=== PATIENT | female | born 1970 | race Caucasian/White ===

== ENCOUNTER 2018-11-28 15:29 | Emergency (ER) | payer SELFPAY ==
--- NOTE | 2018-11-28 16:10 | RAD ---
EXAM: XR Knee Rt 4 View STANDARD PROVIDED CLINICAL HISTORY: Knee pain COMPARISON: None FINDINGS: No evidence for fracture or other acute osseous abnormality. Tricompartmental osteophyte formation wi th medial femorotibial joint space narrowing. Alignment appears anatomic. Joint spaces appear otherwise preserved. No significant knee joint capsular distention apparent. IMPRESSION: Degenerative arthrosis without evidence for an acute osseous abnormality.
[2018-11-28 16:30] LABS: Bilirubin Negative (Negative); Blood, Urine Large (Negative); Glucose, Urine (Dipstick) Negative (Negative); Leukocyte Moderate (Negative); Nitrite Positive (Negative); Protein, Urine (Dipstick) > or equal to 300 mg/dL (Neg-Trace); Urobilinogen 0.2 mg/dL (Less than 2)
[2018-11-28 16:32] LABS: Clarity Turbid (Clear)
[2018-11-28 16:44] LABS: Bacteria/HPF 3+ HPF (None Seen); RBC/HPF 21-50 HPF (0-3); WBC/HPF Greater Than 50 HPF (0-3)
== END 2018-11-28 17:22 | disposition home or self-care (01) ==
LOC: ERS 15:29
DX: N39.0 Urinary tract infection, site not specified (principal); M25.561 Pain in right knee; Z86.718 Personal history of other venous thrombosis and embolism; F41.9 Anxiety disorder, unspecified; F31.9 Bipolar disorder, unspecified; Z79.01 Long term (current) use of anticoagulants; Z79.899 Other long term (current) drug therapy
CPT/HCPCS: 81003; 81015; 87077; 87086; 87186

== ENCOUNTER 2019-02-27 13:54 | Emergency (ER) | payer SELFPAY ==
[2019-02-27] MEDS ORDERED: Bupivacaine 0.5% 10 ML VIAL ONE (14:08)
== END 2019-02-27 15:05 | disposition home or self-care (01) ==
LOC: ERS 13:54
DX: K04.7 Periapical abscess without sinus (principal); F41.9 Anxiety disorder, unspecified; F31.9 Bipolar disorder, unspecified; Z86.718 Personal history of other venous thrombosis and embolism; Z79.01 Long term (current) use of anticoagulants; Z79.899 Other long term (current) drug therapy
CPT/HCPCS: J3490

== ENCOUNTER 2020-01-29 16:24 | Emergency (ER) | payer SELFPAY ==
[2020-01-29] MEDS ORDERED: Ondansetron ODT 4 MG TAB ONE (18:13)
[2020-01-29 18:35] LABS: #Basophils 0.1 thou/uL (0.0-0.2); #Eosinphils 0.5 thou/uL (0.0-0.7); #Lymphocytes 2.4 thou/uL (1.20-3.40); #Monocytes 0.6 thou/uL (0.11-0.59); #Neutrophils 4.6 thou/uL (1.40-6.50); %Basophils 0.8 % (0.0-1.0); %Eosinophils 5.8 % (0.0-10.0); %Lymphocytes 29.2 % (21.0-51.0); %Monocytes 6.9 % (0.0-10.0); %Neutrophils 57.4 % (42.0-75.0); Hemoglobin 14.2 g/dL (12.0-16.0); Mean Corpuscular HGB CONC 34.9 g/dL (32.0-36.0); Mean Corpuscular Hemoglobin 28.2 pg (27.0-31.0); Mean Platelet Volume 7.2 fL (7.4-10.4); Platelet Count 231 thou/uL (130-400); RBC Distribution Width 13.3 % (11.5-14.5); Red Blood Cell (RBC) Count 5.01 mill/uL (4.20-5.40); White Blood Cell (WBC) Count 8.1 thou/uL (4.8-10.8)
[2020-01-29] MEDS ORDERED: Milk Of Magnesia 30 ML UDCUP ONE (18:43)
[2020-01-29] MEDS ORDERED: Lidocaine Viscous Sol 2% 15 ml UD Cup ONE (18:44)
[2020-01-29] MEDS ORDERED: Pantoprazole 40 MG VIAL ONE (18:44)
[2020-01-29 19:03] LABS: ALT (SGPT) 15 U/L (8-55); AST (SGOT) 21 U/L (5-34); Albumin 4.1 g/dL (3.5-5.0); Alkaline Phosphatase 70 U/L (40-110); Anion Gap 13 mmol/L (10-20); BUN (Urea Nitrogen) 10 mg/dL (7.0-18.7); Bilirubin, Total 0.7 mg/dL (0.2-1.2); Calc. Creatinine Clearance 0 mL/min (70-130); Calcium 9.2 mg/dL (7.8-10.44); Carbon Dioxide 23 mmol/L (22-29); Chloride 105 mmol/L (98-107); Estimated GFR-MDRD 75; Globulin 3.1 g/dL (2.4-3.5); Glucose 108 mg/dL (70-105); Lipase 13 U/L (8-78); Potassium 3.7 mmol/L (3.5-5.1); Protein, Total 7.2 g/dL (6.0-8.3); Sodium 137 mmol/L (136-145)
--- NOTE | 2020-02-02 13:27 | EKG ---
Test Reason : Blood Pressure : / mmHG Vent. Rate : 074 BPM Atrial Rate : 074 BPM P-R Int : 140 ms QRS Dur : 092 ms QT Int : 400 ms P-R-T Axes : 055 064 -17 degrees QTc Int : 444 ms Normal sinus rhythm Abnormal ECG Confirmed by CAPRICE SHEIKH DO ([id number]), associate entertainment editor DEMARCUS SAMUEL ([id number] on 02/02/2020 1:27:26 PM Referred By: Confirmed By:CAPRICE SHEIKH DO
== END 2020-01-29 21:00 | disposition home or self-care (01) ==
LOC: ERS 16:24
DX: K29.70 Gastritis, unspecified, without bleeding (principal); Z86.718 Personal history of other venous thrombosis and embolism; F41.9 Anxiety disorder, unspecified; F31.9 Bipolar disorder, unspecified; Z79.01 Long term (current) use of anticoagulants; Z79.899 Other long term (current) drug therapy
CPT/HCPCS: 36415; 80053; 83690; 85025; 93005; 96374; C9113; Q0162

== ENCOUNTER 2021-07-31 13:36 | Inpatient (IN) | payer OTHER, MEDICAID ==
[2021-07-31] MEDS ORDERED: Morphine 4 MG/ML VIAL ONE (14:46)
[2021-07-31 15:30] LABS: ALT (SGPT) 12 U/L (8-55); AST (SGOT) 33 U/L (5-34); Albumin 3.8 g/dL (3.5-5.0); Alkaline Phosphatase 72 U/L (40-110); Anion Gap 14 mmol/L (10-20); BUN (Urea Nitrogen) 6 mg/dL (9.8-20.1); Bilirubin, Total 0.6 mg/dL (0.2-1.2); Calc. Creatinine Clearance 0 mL/min (70-130); Calcium 8.9 mg/dL (7.8-10.44); Carbon Dioxide 22 mmol/L (22-29); Chloride 108 mmol/L (98-107); Globulin 3.1 g/dL (2.4-3.5); Glucose 136 mg/dL (70-105); Potassium 3.8 mmol/L (3.5-5.1); Protein, Total 6.9 g/dL (6.0-8.3); Sodium 140 mmol/L (136-145)
[2021-07-31 15:50] LABS: #Eosinphils 0.3 thou/uL (0.0-0.7); #Lymphocytes 0.9 thou/uL (1.20-3.40); #Monocytes 0.5 thou/uL (0.11-0.59); #Neutrophils 8.1 thou/uL (1.40-6.50); %Basophils 0.1 % (0.0-1.0); %Lymphocytes 8.7 % (21.0-51.0); %Monocytes 5.2 % (0.0-10.0); Hemoglobin 13.5 g/dL (12.0-16.0); Mean Corpuscular HGB CONC 33.2 g/dL (32.0-36.0); Mean Corpuscular Hemoglobin 26.8 pg (27.0-31.0); Mean Corpuscular Volume 80.8 fL (78.0-98.0); Mean Platelet Volume 7.3 fL (7.4-10.4); Platelet Count 285 thou/uL (130-400); RBC Distribution Width 15.5 % (11.5-14.5); Red Blood Cell (RBC) Count 5.03 mill/uL (4.20-5.40); White Blood Cell (WBC) Count 9.8 thou/uL (4.8-10.8)
[2021-07-31 16:02] LABS: INR-International Normal Ratio 1.7; Prothrombin Time 20.4 sec (12.0-14.7)
[2021-07-31 16:03] LABS: PTT 35.3 sec (22.9-36.1)
[2021-07-31] MEDS ORDERED: Ondansetron ODT 4 MG TAB SL PRN (17:30)
[2021-07-31] MEDS ORDERED: Morphine 4 MG/ML VIAL SLOW IVP PRN (17:30)
[2021-07-31] MEDS ORDERED: Acetaminophen 325 MG TAB PO PRN (17:30)
[2021-07-31] MEDS ORDERED: Ondansetron PF 4 MG/2 ML Vial IVP PRN (17:30)
[2021-07-31] MEDS ORDERED: Ondansetron ODT 4 MG TAB PO PRN (17:35)
[2021-07-31] MEDS ORDERED: Acetaminophen 500 MG TAB PO PRN (17:35)
[2021-07-31] MEDS ORDERED: Dextrose 5% in Water 1,000 ML IV PRN (17:35)
[2021-07-31] MEDS ORDERED: Dextrose 50% Abboject 50 ML SYRINGE SLOW IVP PRN (17:35)
[2021-07-31] MEDS ORDERED: HYDROcodone/Acetaminophen 5/325 mg Tablet PO PRN (17:35)
[2021-07-31] MEDS ORDERED: HumaLOG 300 UNITS/3 ML VIAL SC PRN (17:35)
[2021-07-31] MEDS ORDERED: hydrALAZINE 20 MG/ML VIAL SLOW IVP PRN (17:35)
[2021-07-31] MEDS: HYDROcodone/Acetaminophen 5/325 mg Tablet PO PRN (19:54)
[2021-07-31] MEDS: Famotidine 20 MG TAB PO SCH (19:55)
[2021-07-31 20:58] VITALS: BMI 42.4
[2021-07-31] MEDS: Nystatin Powder 15 GM BOT TOP PRN (21:38)
[2021-08-01 00:26] LABS: SARS-CoV-2 PCR by NAA Not Detected (NotDetected)
[2021-08-01] MEDS: HYDROcodone/Acetaminophen 5/325 mg Tablet PO PRN ×4 (00:39→20:21)
[2021-08-01] MEDS ORDERED: hydrOXYzine 25 MG TAB PO SCH (04:45)
[2021-08-01 06:02] LABS: #Eosinphils 0.5 thou/uL (0.0-0.7); #Monocytes 0.5 thou/uL (0.11-0.59); #Neutrophils 5.1 thou/uL (1.40-6.50); %Basophils 0.2 % (0.0-1.0); %Eosinophils 7.3 % (0.0-10.0); %Lymphocytes 14.5 % (21.0-51.0); %Neutrophils 71.1 % (42.0-75.0); Hemoglobin 13.5 g/dL (12.0-16.0); Mean Corpuscular HGB CONC 34.4 g/dL (32.0-36.0); Mean Corpuscular Hemoglobin 27.9 pg (27.0-31.0); Mean Corpuscular Volume 81.1 fL (78.0-98.0); Mean Platelet Volume 7.2 fL (7.4-10.4); Platelet Count 274 thou/uL (130-400); RBC Distribution Width 15.6 % (11.5-14.5); Red Blood Cell (RBC) Count 4.84 mill/uL (4.20-5.40); White Blood Cell (WBC) Count 7.2 thou/uL (4.8-10.8)
[2021-08-01 06:07] LABS: Prothrombin Time 23.3 sec (12.0-14.7)
[2021-08-01 06:19] LABS: Anion Gap 11 mmol/L (10-20); BUN (Urea Nitrogen) 6 mg/dL (9.8-20.1); Calc. Creatinine Clearance 168 mL/min (70-130); Calcium 8.8 mg/dL (7.8-10.44); Carbon Dioxide 24 mmol/L (22-29); Chloride 108 mmol/L (98-107); Glucose 93 mg/dL (70-105); Potassium 3.7 mmol/L (3.5-5.1); Sodium 139 mmol/L (136-145)
[2021-08-01] MEDS: Morphine 4 MG/ML VIAL SLOW IVP PRN ×2 (08:28→23:24)
[2021-08-01] MEDS: Ondansetron PF 4 MG/2 ML Vial IVP PRN (08:29)
[2021-08-01] MEDS: Famotidine 20 MG TAB PO SCH ×2 (08:29→20:21)
[2021-08-01] MEDS: Baclofen 10 MG TAB PO SCH (17:02)
[2021-08-01] MEDS ORDERED: Sodium Chloride 0.9% 500 ML IV SCH (19:00)
[2021-08-01 21:23] LABS: Bacteria/HPF None Seen HPF (None Seen); Bilirubin Negative (Negative); Blood, Urine Negative (Negative); Clarity Clear (Clear); Glucose, Urine (Dipstick) Normal (Negative); Ketone, Urine Negative (Negative); Leukocyte Negative Leu/uL (Negative); Nitrite Negative (Negative); Protein, Urine (Dipstick) Negative (Neg-Trace); RBC/HPF 0-3 HPF (0-3); Specific Gravity, Urine 1.016 (1.002-1.036); Squamous Epithelial None Seen HPF (0-3); Urobilinogen Normal mg/dL (Less than 2); WBC/HPF 0-3 HPF (0-3)
[2021-08-01 21:24] LABS: Urine Culture Reflex No No
[2021-08-02] MEDS ORDERED: hydrOXYzine 25 MG TAB PO SCH
[2021-08-02] MEDS: HYDROcodone/Acetaminophen 5/325 mg Tablet PO PRN ×4 (02:19→22:49)
[2021-08-02] MEDS: Ondansetron PF 4 MG/2 ML Vial IVP PRN (03:18)
[2021-08-02] MEDS: Baclofen 10 MG TAB PO SCH ×2 (03:36→22:02)
[2021-08-02] MEDS: Famotidine 20 MG TAB PO SCH ×2 (08:15→22:02)
[2021-08-02] MEDS: Furosemide 20 MG/2 ML VIAL SLOW IVP SCH ×2 (15:23→16:30)
[2021-08-02] MEDS ORDERED: Furosemide 40 MG TAB PO SCH (16:45)
[2021-08-03] MEDS: hydrOXYzine Pamoate 25 mg Capsule PO PRN (03:29)
[2021-08-03] MEDS: Nystatin Powder 15 GM BOT TOP PRN ×2 (03:31→21:16)
[2021-08-03] MEDS: HYDROcodone/Acetaminophen 5/325 mg Tablet PO PRN ×3 (06:21→21:02)
[2021-08-03] MEDS: Baclofen 10 MG TAB PO SCH ×2 (08:48→21:06)
[2021-08-03] MEDS: Famotidine 20 MG TAB PO SCH ×2 (08:48→21:10)
[2021-08-03] MEDS: Aripiprazole 10 MG TAB PO SCH (21:04)
[2021-08-03] MEDS: busPIRone HCl 10 MG TAB PO SCH (21:04)
[2021-08-03] MEDS: azaTHIOprine 50 MG TAB PO SCH (21:06)
[2021-08-03] MEDS: Trihexyphenidyl 2 MG TAB PO SCH (21:07)
[2021-08-04] MEDS: HYDROcodone/Acetaminophen 5/325 mg Tablet PO PRN ×5 (00:57→23:47)
[2021-08-04] MEDS: Baclofen 10 MG TAB PO SCH ×2 (08:34→20:16)
[2021-08-04] MEDS: busPIRone HCl 10 MG TAB PO SCH ×2 (08:34→20:28)
[2021-08-04] MEDS: lamoTRIgine 100 MG TAB PO SCH (08:34)
[2021-08-04] MEDS: azaTHIOprine 50 MG TAB PO SCH ×2 (08:34→20:16)
[2021-08-04] MEDS: Famotidine 20 MG TAB PO SCH ×2 (08:34→20:17)
[2021-08-04] MEDS: Glimepiride 4 MG TAB PO SCH (08:34)
[2021-08-04] MEDS: Trihexyphenidyl 2 MG TAB PO SCH ×2 (08:35→20:15)
[2021-08-04] MEDS: predniSONE 50 MG TAB PO SCH (09:00)
[2021-08-04] MEDS: Aripiprazole 10 MG TAB PO SCH (20:17)
[2021-08-05] MEDS: HYDROcodone/Acetaminophen 5/325 mg Tablet PO PRN ×2 (04:46→12:25)
[2021-08-05] MEDS: busPIRone HCl 10 MG TAB PO SCH ×2 (08:26→22:00)
[2021-08-05] MEDS: Trihexyphenidyl 2 MG TAB PO SCH ×2 (08:27→21:57)
[2021-08-05] MEDS: azaTHIOprine 50 MG TAB PO SCH ×2 (08:27→21:59)
[2021-08-05] MEDS: Baclofen 10 MG TAB PO SCH ×2 (08:27→22:00)
[2021-08-05] MEDS: Glimepiride 4 MG TAB PO SCH (08:27)
[2021-08-05] MEDS: Famotidine 20 MG TAB PO SCH ×2 (08:27→21:59)
[2021-08-05] MEDS: predniSONE 50 MG TAB PO SCH (08:28)
[2021-08-05] MEDS: lamoTRIgine 100 MG TAB PO SCH (08:28)
[2021-08-05] MEDS: HumaLOG 300 UNITS/3 ML VIAL SC PRN (12:26)
[2021-08-05] MEDS: Aripiprazole 10 MG TAB PO SCH (21:58)
[2021-08-06] MEDS: HYDROcodone/Acetaminophen 5/325 mg Tablet PO PRN ×5 (00:55→21:55)
[2021-08-06] MEDS: hydrOXYzine Pamoate 25 mg Capsule PO PRN ×2 (00:56→21:55)
[2021-08-06] MEDS: Glimepiride 4 MG TAB PO SCH (08:45)
[2021-08-06] MEDS: azaTHIOprine 50 MG TAB PO SCH ×2 (08:46→21:50)
[2021-08-06] MEDS: busPIRone HCl 10 MG TAB PO SCH ×2 (08:46→21:00)
[2021-08-06] MEDS: Famotidine 20 MG TAB PO SCH ×2 (08:46→21:50)
[2021-08-06] MEDS: predniSONE 50 MG TAB PO SCH (08:46)
[2021-08-06] MEDS: Trihexyphenidyl 2 MG TAB PO SCH ×2 (08:47→21:49)
[2021-08-06] MEDS: Baclofen 10 MG TAB PO SCH ×2 (08:47→21:50)
[2021-08-06] MEDS: lamoTRIgine 100 MG TAB PO SCH (08:47)
[2021-08-06] MEDS: HumaLOG 300 UNITS/3 ML VIAL SC PRN (16:10)
[2021-08-06] MEDS: Aripiprazole 10 MG TAB PO SCH (21:49)
[2021-08-07] MEDS: HYDROcodone/Acetaminophen 5/325 mg Tablet PO PRN ×4 (06:00→18:29)
[2021-08-07] MEDS: predniSONE 50 MG TAB PO SCH (08:34)
[2021-08-07] MEDS: Glimepiride 4 MG TAB PO SCH (08:35)
[2021-08-07] MEDS: lamoTRIgine 100 MG TAB PO SCH (08:35)
[2021-08-07] MEDS: Famotidine 20 MG TAB PO SCH ×2 (08:35→20:51)
[2021-08-07] MEDS: Baclofen 10 MG TAB PO SCH ×2 (08:35→20:50)
[2021-08-07] MEDS: azaTHIOprine 50 MG TAB PO SCH ×2 (08:35→20:49)
[2021-08-07] MEDS: busPIRone HCl 10 MG TAB PO SCH ×2 (08:35→20:50)
[2021-08-07] MEDS: Trihexyphenidyl 2 MG TAB PO SCH ×2 (08:43→20:52)
[2021-08-07] MEDS: HumaLOG 300 UNITS/3 ML VIAL SC PRN ×2 (12:00→17:43)
[2021-08-07] MEDS: Aripiprazole 10 MG TAB PO SCH (20:48)
[2021-08-07] MEDS: hydrOXYzine Pamoate 25 mg Capsule PO PRN (22:01)
[2021-08-08] MEDS: HYDROcodone/Acetaminophen 5/325 mg Tablet PO PRN ×5 (01:19→21:08)
[2021-08-08] MEDS: Glimepiride 4 MG TAB PO SCH (08:46)
[2021-08-08] MEDS: predniSONE 50 MG TAB PO SCH (08:47)
[2021-08-08] MEDS: lamoTRIgine 100 MG TAB PO SCH (08:47)
[2021-08-08] MEDS: busPIRone HCl 10 MG TAB PO SCH ×2 (08:47→21:07)
[2021-08-08] MEDS: Baclofen 10 MG TAB PO SCH ×2 (08:48→21:07)
[2021-08-08] MEDS: azaTHIOprine 50 MG TAB PO SCH ×2 (08:48→21:07)
[2021-08-08] MEDS: Trihexyphenidyl 2 MG TAB PO SCH ×2 (08:48→21:08)
[2021-08-08] MEDS: Famotidine 20 MG TAB PO SCH ×2 (08:48→21:08)
[2021-08-08] MEDS ORDERED: Nystatin Powder 15 GM BOT TOP PRN (12:28)
[2021-08-08 16:04] LABS: SARS-CoV-2 PCR by NAA Not Detected (NotDetected)
[2021-08-08] MEDS: HumaLOG 300 UNITS/3 ML VIAL SC PRN (16:53)
[2021-08-08] MEDS: Aripiprazole 10 MG TAB PO SCH (21:06)
[2021-08-09] MEDS: HYDROcodone/Acetaminophen 5/325 mg Tablet PO PRN ×5 (01:33→20:51)
[2021-08-09] MEDS: lamoTRIgine 100 MG TAB PO SCH (08:21)
[2021-08-09] MEDS: predniSONE 50 MG TAB PO SCH (08:21)
[2021-08-09] MEDS: Famotidine 20 MG TAB PO SCH ×2 (08:22→20:51)
[2021-08-09] MEDS: Glimepiride 4 MG TAB PO SCH (08:22)
[2021-08-09] MEDS: azaTHIOprine 50 MG TAB PO SCH ×2 (08:23→20:50)
[2021-08-09] MEDS: busPIRone HCl 10 MG TAB PO SCH ×2 (08:23→20:50)
[2021-08-09] MEDS: Baclofen 10 MG TAB PO SCH ×2 (08:24→20:51)
[2021-08-09] MEDS: Trihexyphenidyl 2 MG TAB PO SCH ×2 (08:24→20:50)
[2021-08-09] MEDS: HumaLOG 300 UNITS/3 ML VIAL SC PRN (15:57)
[2021-08-09] MEDS: Aripiprazole 10 MG TAB PO SCH (20:51)
[2021-08-09] MEDS ORDERED: traZODone HCl 50 MG TAB PO SCH (21:30)
[2021-08-10] MEDS: HYDROcodone/Acetaminophen 5/325 mg Tablet PO PRN ×4 (01:05→21:12)
[2021-08-10 06:35] LABS: #Basophils 0.1 thou/uL (0.0-0.2); #Eosinphils 0.3 thou/uL (0.0-0.7); #Lymphocytes 2.3 thou/uL (1.20-3.40); #Monocytes 0.6 thou/uL (0.11-0.59); #Neutrophils 5.3 thou/uL (1.40-6.50); %Basophils 0.7 % (0.0-1.0); %Eosinophils 3.6 % (0.0-10.0); %Lymphocytes 27.3 % (21.0-51.0); %Monocytes 6.5 % (0.0-10.0); Hemoglobin 13.9 g/dL (12.0-16.0); Mean Corpuscular HGB CONC 32.2 g/dL (32.0-36.0); Mean Corpuscular Hemoglobin 26.9 pg (27.0-31.0); Mean Corpuscular Volume 83.6 fL (78.0-98.0); Mean Platelet Volume 6.9 fL (7.4-10.4); Platelet Count 417 thou/uL (130-400); RBC Distribution Width 15.5 % (11.5-14.5); Red Blood Cell (RBC) Count 5.15 mill/uL (4.20-5.40); White Blood Cell (WBC) Count 8.5 thou/uL (4.8-10.8)
[2021-08-10 06:50] LABS: Anion Gap 13 mmol/L (10-20); BUN (Urea Nitrogen) 14 mg/dL (9.8-20.1); Calc. Creatinine Clearance 155 mL/min (70-130); Calcium 9.4 mg/dL (7.8-10.44); Carbon Dioxide 25 mmol/L (22-29); Chloride 104 mmol/L (98-107); Glucose 72 mg/dL (70-105); Potassium 3.3 mmol/L (3.5-5.1); Sodium 139 mmol/L (136-145)
[2021-08-10] MEDS: busPIRone HCl 10 MG TAB PO SCH ×2 (08:46→21:12)
[2021-08-10] MEDS: azaTHIOprine 50 MG TAB PO SCH ×2 (08:46→21:11)
[2021-08-10] MEDS: lamoTRIgine 100 MG TAB PO SCH (08:46)
[2021-08-10] MEDS: Glimepiride 4 MG TAB PO SCH (08:47)
[2021-08-10] MEDS: Trihexyphenidyl 2 MG TAB PO SCH ×2 (08:47→21:11)
[2021-08-10] MEDS: predniSONE 50 MG TAB PO SCH (08:47)
[2021-08-10] MEDS: Baclofen 10 MG TAB PO SCH ×2 (08:47→21:12)
[2021-08-10] MEDS: Famotidine 20 MG TAB PO SCH ×2 (08:47→21:12)
[2021-08-10] MEDS ORDERED: Potassium Chloride 20 MEQ TAB PO SCH (13:30)
[2021-08-10] MEDS: HumaLOG 300 UNITS/3 ML VIAL SC PRN (17:25)
[2021-08-10] MEDS ORDERED: HYDROcodone/Acetaminophen 5/325 mg Tablet PO PRN (17:39)
[2021-08-10] MEDS: Aripiprazole 10 MG TAB PO SCH (21:11)
[2021-08-11] MEDS: HYDROcodone/Acetaminophen 5/325 mg Tablet PO PRN ×4 (01:11→22:01)
[2021-08-11] MEDS: azaTHIOprine 50 MG TAB PO SCH ×2 (09:02→21:58)
[2021-08-11] MEDS: lamoTRIgine 100 MG TAB PO SCH (09:02)
[2021-08-11] MEDS: predniSONE 50 MG TAB PO SCH (09:02)
[2021-08-11] MEDS: Glimepiride 4 MG TAB PO SCH (09:03)
[2021-08-11] MEDS: busPIRone HCl 10 MG TAB PO SCH ×2 (09:03→22:02)
[2021-08-11] MEDS: Trihexyphenidyl 2 MG TAB PO SCH ×2 (09:04→22:05)
[2021-08-11] MEDS: Baclofen 10 MG TAB PO SCH ×2 (09:04→22:06)
[2021-08-11] MEDS: Famotidine 20 MG TAB PO SCH ×2 (09:04→21:59)
[2021-08-11] MEDS: HumaLOG 300 UNITS/3 ML VIAL SC PRN (17:03)
[2021-08-11] MEDS: Aripiprazole 10 MG TAB PO SCH (21:59)
[2021-08-12] MEDS: HYDROcodone/Acetaminophen 5/325 mg Tablet PO PRN ×2 (02:58→11:53)
[2021-08-12 07:32] VITALS: BP 115/56; TEMP 97.6
[2021-08-12] MEDS: Glimepiride 4 MG TAB PO SCH (07:57)
[2021-08-12] MEDS: busPIRone HCl 10 MG TAB PO SCH (07:57)
[2021-08-12] MEDS: azaTHIOprine 50 MG TAB PO SCH (07:57)
[2021-08-12] MEDS: Baclofen 10 MG TAB PO SCH (07:57)
[2021-08-12] MEDS: Famotidine 20 MG TAB PO SCH (07:57)
[2021-08-12] MEDS: predniSONE 50 MG TAB PO SCH (07:58)
[2021-08-12] MEDS: lamoTRIgine 100 MG TAB PO SCH (07:58)
[2021-08-12] MEDS: Trihexyphenidyl 2 MG TAB PO SCH (07:59)
[2021-08-12] MEDS: HumaLOG 300 UNITS/3 ML VIAL SC PRN (11:56)
== END 2021-08-12 14:18 | disposition home health service (06) | DRG 551 ==
LOC: ERS 13:36 → T4-A 17:17 → OBSVTOIN 08-01 15:27
PROVIDERS: ADMIT Hospitalist; ATTEND Hospitalist
DX: S32.022A Unstable burst fracture of second lumbar vertebra, initial encounter for closed fracture (principal); J81.0 Acute pulmonary edema; S22.030A Wedge compression fracture of third thoracic vertebra, initial encounter for closed fracture; S22.050A Wedge compression fracture of T5-T6 vertebra, initial encounter for closed fracture; L10.0 Pemphigus vulgaris; Z68.41 Body mass index [BMI] 40.0-44.9, adult; Z20.822 Contact with and (suspected) exposure to COVID-19; M81.0 Age-related osteoporosis without current pathological fracture; E87.6 Hypokalemia; M81.8 Other osteoporosis without current pathological fracture; F41.9 Anxiety disorder, unspecified; T38.0X5A Adverse effect of glucocorticoids and synthetic analogues, initial encounter; F31.9 Bipolar disorder, unspecified; W01.0XXA Fall on same level from slipping, tripping and stumbling without subsequent striking against object, initial encounter; E11.9 Type 2 diabetes mellitus without complications; E66.01 Morbid (severe) obesity due to excess calories; R09.02 Hypoxemia; Y92.003 Bedroom of unspecified non-institutional (private) residence as the place of occurrence of the external cause; Z28.21 Immunization not carried out because of patient refusal; Z87.442 Personal history of urinary calculi; Z90.89 Acquired absence of other organs; Z95.828 Presence of other vascular implants and grafts; Z90.710 Acquired absence of both cervix and uterus; Z88.8 Allergy status to other drugs, medicaments and biological substances; Z79.01 Long term (current) use of anticoagulants; Z86.718 Personal history of other venous thrombosis and embolism; Z85.828 Personal history of other malignant neoplasm of skin; Z90.49 Acquired absence of other specified parts of digestive tract
CPT/HCPCS: 36415; 36416; 51798; 71045; 72128; 72131; 72170; 80048; 80053; 81001; 85025; 85610; 85730; 93005; 96374; 96375; 96376; G0378; J1815; J1940; J2270; J2405; J7030; J7500; J7512; Q0177; U0003; U0005

== ENCOUNTER 2021-08-30 09:55 | Inpatient (IN) | payer MEDICAID ==
[2021-08-30] MEDS ORDERED: Morphine 4 MG/ML VIAL ONE (10:09)
[2021-08-30] MEDS ORDERED: Cyclobenzaprine 10 MG TAB ONE (11:47)
[2021-08-30] MEDS ORDERED: Ketorolac Tromethamine 30 MG/ML VIAL ONE (11:47)
[2021-08-30] MEDS ORDERED: Lorazepam 2 MG/ML VIAL ONE (12:58)
[2021-08-30 13:10] LABS: #Eosinphils 0.5 thou/uL (0.0-0.7); #Monocytes 0.4 thou/uL (0.11-0.59); #Neutrophils 4.4 thou/uL (1.40-6.50); %Basophils 0.1 % (0.0-1.0); %Eosinophils 7.3 % (0.0-10.0); %Lymphocytes 16.4 % (21.0-51.0); %Monocytes 6.9 % (0.0-10.0); %Neutrophils 69.3 % (42.0-75.0); Hemoglobin 15.1 g/dL (12.0-16.0); Mean Corpuscular HGB CONC 32.9 g/dL (32.0-36.0); Mean Corpuscular Hemoglobin 27.3 pg (27.0-31.0); Mean Corpuscular Volume 83.1 fL (78.0-98.0); Mean Platelet Volume 7.3 fL (7.4-10.4); Platelet Count 262 thou/uL (130-400); RBC Distribution Width 16.1 % (11.5-14.5); Red Blood Cell (RBC) Count 5.53 mill/uL (4.20-5.40); White Blood Cell (WBC) Count 6.3 thou/uL (4.8-10.8)
[2021-08-30 13:26] LABS: INR-International Normal Ratio 1.5; Prothrombin Time 18.5 sec (12.0-14.7)
[2021-08-30 13:27] LABS: PTT 37.2 sec (22.9-36.1)
[2021-08-30 13:37] LABS: ALT (SGPT) 9 U/L (8-55); AST (SGOT) 23 U/L (5-34); Albumin 3.6 g/dL (3.5-5.0); Alkaline Phosphatase 90 U/L (40-110); Anion Gap 14 mmol/L (10-20); BUN (Urea Nitrogen) 5 mg/dL (9.8-20.1); Bilirubin, Total 0.8 mg/dL (0.2-1.2); Calc. Creatinine Clearance 0 mL/min (70-130); Calcium 9.3 mg/dL (7.8-10.44); Carbon Dioxide 24 mmol/L (22-29); Chloride 105 mmol/L (98-107); Globulin 3.3 g/dL (2.4-3.5); Glucose 96 mg/dL (70-105); Potassium 3.6 mmol/L (3.5-5.1); Protein, Total 6.9 g/dL (6.0-8.3); Sodium 139 mmol/L (136-145)
[2021-08-30] MEDS ORDERED: traMADol HCl 50 MG TAB PO PRN ×2 (13:57)
[2021-08-30] MEDS ORDERED: hydrALAZINE 20 MG/ML VIAL SLOW IVP PRN (13:57)
[2021-08-30] MEDS ORDERED: Morphine 2 MG/ML VIAL SLOW IVP PRN (13:57)
[2021-08-30] MEDS ORDERED: Promethazine HCl 25 MG/ML VIAL IM PRN (13:57)
[2021-08-30] MEDS ORDERED: Ondansetron PF 4 MG/2 ML Vial IVP PRN (13:57)
[2021-08-30] MEDS ORDERED: Phytonadione 10 MG/ML AMP SLOW IVP SCH (14:00)
[2021-08-30] MEDS ORDERED: Phytonadione 10 MG in Sodium Chloride 0.9% 50 ML IVPB SCH (14:15)
[2021-08-30 14:25] LABS: SARS-CoV-2 NAA Rapid Test Not Detected (NotDetected)
[2021-08-30 15:58] VITALS: BMI 37.9
[2021-08-30] MEDS: Sodium Chloride 0.9% 1,000 ML IV SCH ×2 (16:33→23:57)
[2021-08-30] MEDS ORDERED: Acetaminophen 500 MG TAB PO SCH (18:00)
[2021-08-30] MEDS: HYDROcodone/Acetaminophen 5/325 mg Tablet PO PRN (21:20)
[2021-08-30] MEDS: Famotidine/PF 20 mg/2ml Vial SLOW IVP SCH (21:21)
[2021-08-31] MEDS: traZODone HCl 50 MG TAB PO PRN ×2 (01:51→21:49)
[2021-08-31] MEDS: HYDROcodone/Acetaminophen 5/325 mg Tablet PO PRN ×3 (04:34→21:47)
[2021-08-31] MEDS: Sodium Chloride 0.9% 1,000 ML IV SCH ×2 (04:35→13:30)
[2021-08-31 07:08] LABS: INR-International Normal Ratio 1.2; Prothrombin Time 15.6 sec (12.0-14.7)
[2021-08-31 07:09] LABS: PTT 39.9 sec (22.9-36.1)
[2021-08-31 07:13] LABS: #Eosinphils 0.5 thou/uL (0.0-0.7); #Monocytes 0.4 thou/uL (0.11-0.59); #Neutrophils 3.3 thou/uL (1.40-6.50); %Basophils 0.1 % (0.0-1.0); %Eosinophils 9.5 % (0.0-10.0); %Lymphocytes 18.9 % (21.0-51.0); %Monocytes 7.2 % (0.0-10.0); %Neutrophils 64.4 % (42.0-75.0); Hemoglobin 12.4 g/dL (12.0-16.0); Mean Corpuscular HGB CONC 33.9 g/dL (32.0-36.0); Mean Corpuscular Volume 82.8 fL (78.0-98.0); Mean Platelet Volume 7.2 fL (7.4-10.4); Platelet Count 255 thou/uL (130-400); RBC Distribution Width 15.9 % (11.5-14.5); Red Blood Cell (RBC) Count 4.41 mill/uL (4.20-5.40); White Blood Cell (WBC) Count 5.1 thou/uL (4.8-10.8)
[2021-08-31 07:20] LABS: Anion Gap 14 mmol/L (10-20); BUN (Urea Nitrogen) 5 mg/dL (9.8-20.1); Calc. Creatinine Clearance 160 mL/min (70-130); Calcium 8.6 mg/dL (7.8-10.44); Carbon Dioxide 21 mmol/L (22-29); Chloride 107 mmol/L (98-107); Glucose 103 mg/dL (70-105); Potassium 3.4 mmol/L (3.5-5.1); Sodium 139 mmol/L (136-145)
[2021-08-31] MEDS: Famotidine/PF 20 mg/2ml Vial SLOW IVP SCH ×2 (09:31→21:50)
[2021-08-31] MEDS: traMADol HCl 50 MG TAB PO SCH ×3 (12:51→23:24)
[2021-08-31] MEDS ORDERED: Warfarin Sodium 10 MG TAB PO SCH ×2 (17:00)
[2021-08-31] MEDS: Aripiprazole 10 MG TAB PO SCH (21:42)
[2021-08-31] MEDS: busPIRone HCl 10 MG TAB PO SCH (21:44)
[2021-08-31] MEDS: Baclofen 10 MG TAB PO PRN (21:46)
[2021-08-31] MEDS: azaTHIOprine 50 MG TAB PO SCH (21:46)
[2021-08-31] MEDS: Trihexyphenidyl 2 MG TAB PO SCH (21:48)
[2021-08-31] MEDS: Enoxaparin Sodium 100 MG/ML SYRINGE SC SCH (21:49)
[2021-09-01] MEDS: traMADol HCl 50 MG TAB PO SCH ×4 (05:29→23:43)
[2021-09-01 07:07] LABS: INR-International Normal Ratio 1.1
[2021-09-01] MEDS: Nystatin Powder 15 GM BOT TOP SCH ×2 (10:32→20:51)
[2021-09-01] MEDS: busPIRone HCl 10 MG TAB PO SCH ×2 (10:33→20:57)
[2021-09-01] MEDS: predniSONE 5 MG TAB PO SCH (10:34)
[2021-09-01] MEDS: azaTHIOprine 50 MG TAB PO SCH ×2 (10:34→20:56)
[2021-09-01] MEDS: Enoxaparin Sodium 100 MG/ML SYRINGE SC SCH ×2 (10:35→20:56)
[2021-09-01] MEDS: Trihexyphenidyl 2 MG TAB PO SCH ×2 (10:35→20:58)
[2021-09-01] MEDS: Famotidine/PF 20 mg/2ml Vial SLOW IVP SCH ×2 (10:36→20:58)
[2021-09-01] MEDS: Glimepiride 4 MG TAB PO SCH (10:49)
[2021-09-01] MEDS: lamoTRIgine 100 MG TAB PO SCH (11:31)
[2021-09-01] MEDS: Warfarin Sodium 5 MG TAB PO SCH (17:03)
[2021-09-01] MEDS: traZODone HCl 50 MG TAB PO PRN (20:56)
[2021-09-01] MEDS: hydrOXYzine Pamoate 25 mg Capsule PO PRN (20:57)
[2021-09-01] MEDS: Aripiprazole 10 MG TAB PO SCH (20:57)
[2021-09-01] MEDS: Baclofen 10 MG TAB PO PRN (20:57)
[2021-09-02] MEDS: traMADol HCl 50 MG TAB PO SCH ×4 (04:13→23:23)
[2021-09-02 06:26] LABS: Prothrombin Time 13.5 sec (12.0-14.7)
[2021-09-02] MEDS: HYDROcodone/Acetaminophen 5/325 mg Tablet PO PRN (07:17)
[2021-09-02] MEDS: Enoxaparin Sodium 100 MG/ML SYRINGE SC SCH ×2 (08:55→21:47)
[2021-09-02] MEDS: busPIRone HCl 10 MG TAB PO SCH ×2 (08:55→21:47)
[2021-09-02] MEDS: Glimepiride 4 MG TAB PO SCH (08:55)
[2021-09-02] MEDS: Famotidine/PF 20 mg/2ml Vial SLOW IVP SCH ×2 (08:55→21:47)
[2021-09-02] MEDS: azaTHIOprine 50 MG TAB PO SCH ×2 (08:55→21:46)
[2021-09-02] MEDS: lamoTRIgine 100 MG TAB PO SCH (08:56)
[2021-09-02] MEDS: predniSONE 5 MG TAB PO SCH (08:56)
[2021-09-02] MEDS: Nystatin Powder 15 GM BOT TOP SCH ×2 (08:58→21:46)
[2021-09-02] MEDS: Trihexyphenidyl 2 MG TAB PO SCH ×2 (08:58→21:47)
[2021-09-02] MEDS: Warfarin Sodium 5 MG TAB PO SCH (17:46)
[2021-09-02] MEDS: Baclofen 10 MG TAB PO PRN (21:46)
[2021-09-02] MEDS: traZODone HCl 50 MG TAB PO PRN (21:46)
[2021-09-02] MEDS: Aripiprazole 10 MG TAB PO SCH (21:46)
[2021-09-03] MEDS: Ondansetron ODT 4 MG TAB PO PRN ×2 (00:24→06:33)
[2021-09-03] MEDS: traMADol HCl 50 MG TAB PO SCH ×4 (04:24→22:41)
[2021-09-03] MEDS: hydrOXYzine Pamoate 25 mg Capsule PO PRN (05:31)
[2021-09-03 05:52] LABS: Prothrombin Time 13.3 sec (12.0-14.7)
[2021-09-03] MEDS: Baclofen 10 MG TAB PO PRN (06:25)
[2021-09-03] MEDS: Enoxaparin Sodium 100 MG/ML SYRINGE SC SCH ×2 (10:24→21:48)
[2021-09-03] MEDS: Famotidine/PF 20 mg/2ml Vial SLOW IVP SCH ×2 (10:25→19:56)
[2021-09-03] MEDS: Nystatin Powder 15 GM BOT TOP SCH ×2 (10:25→21:50)
[2021-09-03] MEDS: azaTHIOprine 50 MG TAB PO SCH ×2 (10:25→21:48)
[2021-09-03] MEDS: Trihexyphenidyl 2 MG TAB PO SCH ×2 (10:27→21:49)
[2021-09-03] MEDS: busPIRone HCl 10 MG TAB PO SCH ×2 (10:27→21:48)
[2021-09-03] MEDS: predniSONE 5 MG TAB PO SCH (10:27)
[2021-09-03] MEDS: Glimepiride 4 MG TAB PO SCH (11:02)
[2021-09-03] MEDS: lamoTRIgine 100 MG TAB PO SCH (11:03)
[2021-09-03] MEDS: Warfarin Sodium 5 MG TAB PO SCH (16:53)
[2021-09-03] MEDS: Aripiprazole 10 MG TAB PO SCH (21:48)
[2021-09-04] MEDS: HYDROcodone/Acetaminophen 5/325 mg Tablet PO PRN (01:24)
[2021-09-04] MEDS: traZODone HCl 50 MG TAB PO PRN ×2 (01:25→21:13)
[2021-09-04] MEDS: traMADol HCl 50 MG TAB PO SCH ×4 (04:34→21:54)
[2021-09-04 05:56] LABS: Prothrombin Time 13.3 sec (12.0-14.7)
[2021-09-04] MEDS: Nystatin Powder 15 GM BOT TOP SCH ×2 (10:01→21:13)
[2021-09-04] MEDS: azaTHIOprine 50 MG TAB PO SCH ×2 (10:02→21:13)
[2021-09-04] MEDS: busPIRone HCl 10 MG TAB PO SCH ×2 (10:02→21:12)
[2021-09-04] MEDS: Glimepiride 4 MG TAB PO SCH (10:02)
[2021-09-04] MEDS: predniSONE 5 MG TAB PO SCH ×2 (10:02→10:34)
[2021-09-04] MEDS: Enoxaparin Sodium 100 MG/ML SYRINGE SC SCH ×2 (10:03→21:11)
[2021-09-04] MEDS: Trihexyphenidyl 2 MG TAB PO SCH (10:03)
[2021-09-04] MEDS: Baclofen 10 MG TAB PO PRN (10:03)
[2021-09-04] MEDS: Famotidine/PF 20 mg/2ml Vial SLOW IVP SCH ×2 (10:04→20:06)
[2021-09-04] MEDS: Gabapentin 100 MG CAP PO SCH ×2 (10:31→20:05)
[2021-09-04 10:45] LABS: #Eosinphils 0.4 thou/uL (0.0-0.7); #Lymphocytes 1.2 thou/uL (1.20-3.40); #Monocytes 0.4 thou/uL (0.11-0.59); #Neutrophils 2.9 thou/uL (1.40-6.50); %Basophils 0.6 % (0.0-1.0); %Eosinophils 8.3 % (0.0-10.0); %Lymphocytes 24.7 % (21.0-51.0); %Monocytes 7.8 % (0.0-10.0); %Neutrophils 58.7 % (42.0-75.0); Hemoglobin 13.7 g/dL (12.0-16.0); Mean Corpuscular HGB CONC 31.3 g/dL (32.0-36.0); Mean Corpuscular Hemoglobin 26.6 pg (27.0-31.0); Mean Corpuscular Volume 84.7 fL (78.0-98.0); Mean Platelet Volume 7.2 fL (7.4-10.4); Platelet Count 295 thou/uL (130-400); RBC Distribution Width 16.3 % (11.5-14.5); Red Blood Cell (RBC) Count 5.15 mill/uL (4.20-5.40)
[2021-09-04 10:58] LABS: Anion Gap 16 mmol/L (10-20); BUN (Urea Nitrogen) 8 mg/dL (9.8-20.1); Calc. Creatinine Clearance 140 mL/min (70-130); Calcium 9.3 mg/dL (7.8-10.44); Carbon Dioxide 22 mmol/L (22-29); Chloride 105 mmol/L (98-107); Phosphorus 4.3 mg/dL (2.3-4.7); Potassium 3.8 mmol/L (3.5-5.1); Sodium 139 mmol/L (136-145)
[2021-09-04 10:59] LABS: CK (CPK) 124 U/L (29-168)
[2021-09-04 11:05] LABS: Glucose 51 mg/dL (70-105)
[2021-09-04] MEDS: lamoTRIgine 100 MG TAB PO SCH (12:09)
[2021-09-04] MEDS ORDERED: Warfarin Sodium 10 MG TAB PO SCH (17:00)
[2021-09-04] MEDS: Aripiprazole 10 MG TAB PO SCH (21:12)
[2021-09-04 21:34] LABS: Glucose 48 mg/dL (70-105)
[2021-09-04] MEDS ORDERED: Dextrose 50% Abboject 50 ML SYRINGE SLOW IVP PRN (23:33)
[2021-09-04] MEDS ORDERED: Dextrose 5% in Water 1,000 ML IV PRN (23:33)
[2021-09-05] MEDS ORDERED: Sterile Water 0 ML ONE (00:52)
[2021-09-05] MEDS: Gabapentin 100 MG CAP PO SCH ×3 (03:21→16:59)
[2021-09-05] MEDS: traMADol HCl 50 MG TAB PO SCH ×5 (03:21→21:54)
[2021-09-05 06:06] LABS: #Eosinphils 0.4 thou/uL (0.0-0.7); #Lymphocytes 1.5 thou/uL (1.20-3.40); #Monocytes 0.5 thou/uL (0.11-0.59); %Basophils 0.9 % (0.0-1.0); %Eosinophils 7.1 % (0.0-10.0); %Lymphocytes 26.8 % (21.0-51.0); %Monocytes 9.1 % (0.0-10.0); %Neutrophils 56.2 % (42.0-75.0); Hemoglobin 13.2 g/dL (12.0-16.0); Mean Corpuscular HGB CONC 32.5 g/dL (32.0-36.0); Mean Corpuscular Hemoglobin 27.3 pg (27.0-31.0); Mean Corpuscular Volume 83.9 fL (78.0-98.0); Mean Platelet Volume 7.2 fL (7.4-10.4); Platelet Count 284 thou/uL (130-400); Red Blood Cell (RBC) Count 4.86 mill/uL (4.20-5.40); White Blood Cell (WBC) Count 5.4 thou/uL (4.8-10.8)
[2021-09-05 06:22] LABS: Prothrombin Time 12.9 sec (12.0-14.7)
[2021-09-05 06:32] LABS: Anion Gap 13 mmol/L (10-20); BUN (Urea Nitrogen) 7 mg/dL (9.8-20.1); Calc. Creatinine Clearance 153 mL/min (70-130); Carbon Dioxide 29 mmol/L (22-29); Chloride 103 mmol/L (98-107); Magnesium 2.2 mg/dL (1.6-2.6); Phosphorus 4.1 mg/dL (2.3-4.7); Potassium 3.3 mmol/L (3.5-5.1); Sodium 142 mmol/L (136-145)
[2021-09-05 06:43] LABS: Glucose 50 mg/dL (70-105)
[2021-09-05] MEDS: azaTHIOprine 50 MG TAB PO SCH ×2 (08:17→20:51)
[2021-09-05] MEDS: busPIRone HCl 10 MG TAB PO SCH ×2 (08:18→20:49)
[2021-09-05] MEDS: Famotidine/PF 20 mg/2ml Vial SLOW IVP SCH ×2 (08:20→20:54)
[2021-09-05] MEDS: predniSONE 5 MG TAB PO SCH (08:22)
[2021-09-05] MEDS: lamoTRIgine 100 MG TAB PO SCH (08:22)
[2021-09-05] MEDS: Baclofen 10 MG TAB PO PRN (08:24)
[2021-09-05] MEDS: Enoxaparin Sodium 100 MG/ML SYRINGE SC SCH ×2 (08:24→20:53)
[2021-09-05] MEDS: Potassium Chloride 20 MEQ in Premix Bag 1 BAG IVPB SCH ×2 (08:37→10:25)
[2021-09-05] MEDS: Nystatin Powder 15 GM BOT TOP SCH ×2 (10:22→20:54)
[2021-09-05] MEDS: Trihexyphenidyl 2 MG TAB PO SCH ×2 (10:24→20:53)
[2021-09-05] MEDS: Warfarin Sodium 5 MG TAB PO SCH (16:58)
[2021-09-05] MEDS: Aripiprazole 10 MG TAB PO SCH (20:52)
[2021-09-06] MEDS: Baclofen 10 MG TAB PO PRN ×2 (00:01→06:04)
[2021-09-06] MEDS: traMADol HCl 50 MG TAB PO SCH ×5 (00:01→23:28)
[2021-09-06] MEDS: Gabapentin 100 MG CAP PO SCH ×3 (02:46→17:22)
[2021-09-06] MEDS: traMADol HCl 50 MG TAB PO PRN (02:46)
[2021-09-06 06:34] LABS: Prothrombin Time 13.6 sec (12.0-14.7)
[2021-09-06 06:49] LABS: Anion Gap 12 mmol/L (10-20); BUN (Urea Nitrogen) 8 mg/dL (9.8-20.1); Calc. Creatinine Clearance 135 mL/min (70-130); Calcium 9.3 mg/dL (7.8-10.44); Carbon Dioxide 26 mmol/L (22-29); Chloride 104 mmol/L (98-107); Glucose 92 mg/dL (70-105); Phosphorus 3.8 mg/dL (2.3-4.7); Potassium 3.4 mmol/L (3.5-5.1); Sodium 139 mmol/L (136-145)
[2021-09-06] MEDS: azaTHIOprine 50 MG TAB PO SCH ×2 (08:53→21:03)
[2021-09-06] MEDS: busPIRone HCl 10 MG TAB PO SCH ×2 (08:55→21:03)
[2021-09-06] MEDS: Enoxaparin Sodium 100 MG/ML SYRINGE SC SCH ×2 (08:56→21:04)
[2021-09-06] MEDS: Famotidine/PF 20 mg/2ml Vial SLOW IVP SCH ×2 (08:58→21:04)
[2021-09-06] MEDS: lamoTRIgine 100 MG TAB PO SCH (08:59)
[2021-09-06] MEDS: predniSONE 5 MG TAB PO SCH (09:00)
[2021-09-06] MEDS: Nystatin Powder 15 GM BOT TOP SCH ×2 (09:00→21:04)
[2021-09-06] MEDS: Potassium Chloride 20 MEQ in Premix Bag 1 BAG IVPB SCH ×2 (09:00→11:36)
[2021-09-06] MEDS: Trihexyphenidyl 2 MG TAB PO SCH ×2 (09:01→21:05)
[2021-09-06] MEDS: Warfarin Sodium 5 MG TAB PO SCH (17:24)
[2021-09-06 18:00] LABS: SARS-CoV-2 PCR by NAA Not Detected (NotDetected)
[2021-09-06] MEDS: Aripiprazole 10 MG TAB PO SCH (21:02)
[2021-09-07] MEDS: Gabapentin 100 MG CAP PO SCH ×3 (02:46→17:54)
[2021-09-07] MEDS: Baclofen 10 MG TAB PO PRN (04:01)
[2021-09-07] MEDS: traMADol HCl 50 MG TAB PO SCH ×4 (05:28→23:02)
[2021-09-07 06:10] LABS: Prothrombin Time 13.2 sec (12.0-14.7)
[2021-09-07] MEDS: predniSONE 5 MG TAB PO SCH (08:24)
[2021-09-07] MEDS: Nystatin Powder 15 GM BOT TOP SCH ×2 (08:24→21:14)
[2021-09-07] MEDS: busPIRone HCl 10 MG TAB PO SCH ×2 (08:24→21:14)
[2021-09-07] MEDS: Enoxaparin Sodium 100 MG/ML SYRINGE SC SCH (08:24)
[2021-09-07] MEDS: Trihexyphenidyl 2 MG TAB PO SCH ×2 (08:24→21:16)
[2021-09-07] MEDS: azaTHIOprine 50 MG TAB PO SCH ×2 (08:24→21:17)
[2021-09-07] MEDS: Famotidine/PF 20 mg/2ml Vial SLOW IVP SCH ×2 (08:24→21:14)
[2021-09-07] MEDS: lamoTRIgine 100 MG TAB PO SCH (11:22)
[2021-09-07] MEDS: traZODone HCl 50 MG TAB PO PRN (21:15)
[2021-09-07] MEDS: Apixaban 5 MG TAB PO SCH (21:18)
[2021-09-07] MEDS: traMADol HCl 50 MG TAB PO PRN (21:18)
[2021-09-07] MEDS: Aripiprazole 10 MG TAB PO SCH (21:18)
[2021-09-08] MEDS: Gabapentin 100 MG CAP PO SCH ×3 (01:41→16:32)
[2021-09-08] MEDS: traMADol HCl 50 MG TAB PO SCH ×3 (05:04→16:33)
[2021-09-08 06:13] LABS: INR-International Normal Ratio 1.1; Prothrombin Time 14.1 sec (12.0-14.7)
[2021-09-08] MEDS: lamoTRIgine 100 MG TAB PO SCH (08:27)
[2021-09-08] MEDS: Famotidine/PF 20 mg/2ml Vial SLOW IVP SCH (08:27)
[2021-09-08] MEDS: Apixaban 5 MG TAB PO SCH (08:28)
[2021-09-08] MEDS: azaTHIOprine 50 MG TAB PO SCH (08:28)
[2021-09-08] MEDS: Nystatin Powder 15 GM BOT TOP SCH (08:28)
[2021-09-08] MEDS: Trihexyphenidyl 2 MG TAB PO SCH (08:28)
[2021-09-08] MEDS: busPIRone HCl 10 MG TAB PO SCH (08:28)
[2021-09-08] MEDS: predniSONE 5 MG TAB PO SCH (08:28)
[2021-09-08] MEDS ORDERED: Famotidine 20 MG TAB PO SCH (09:00)
[2021-09-08 15:57] VITALS: BP 123/78; TEMP 98.5
[2021-09-08] MEDS: traMADol HCl 50 MG TAB PO PRN (16:33)
== END 2021-09-08 17:30 | disposition home or self-care (01) | DRG 552 ==
LOC: ERS 09:55 → SURG B 13:57
PROVIDERS: ADMIT Specialist; ATTEND Surgery
DX: S32.021A Stable burst fracture of second lumbar vertebra, initial encounter for closed fracture (principal); Z20.822 Contact with and (suspected) exposure to COVID-19; F41.9 Anxiety disorder, unspecified; F31.9 Bipolar disorder, unspecified; W18.30XA Fall on same level, unspecified, initial encounter; E66.9 Obesity, unspecified; Z86.718 Personal history of other venous thrombosis and embolism; Z85.828 Personal history of other malignant neoplasm of skin; Z90.710 Acquired absence of both cervix and uterus; Z90.49 Acquired absence of other specified parts of digestive tract; Z88.8 Allergy status to other drugs, medicaments and biological substances; Z79.01 Long term (current) use of anticoagulants; Z79.899 Other long term (current) drug therapy; Z68.37 Body mass index [BMI] 37.0-37.9, adult; E11.649 Type 2 diabetes mellitus with hypoglycemia without coma; Z79.52 Long term (current) use of systemic steroids
CPT/HCPCS: 36415; 36416; 71045; 72128; 72131; 80048; 80053; 82550; 83735; 84100; 85025; 85610; 85730; 86850; 86900; 86901; 93005; 94640; 96374; 96375; J1650; J1885; J2060; J2270; J2550; J3430; J3480; J7050; J7500; J7512; J7620; J7999; Q0162; Q0177; S0028; U0002; U0003; U0005

== ENCOUNTER 2021-10-20 13:39 | Outpatient (CLI) | payer MEDICAID | END 2021-10-20 13:40 | disposition home or self-care (01) | LOC: BICRAD 13:39 | PROVIDERS: ATTEND Neurological Surgery | DX: S32.019A Unspecified fracture of first lumbar vertebra, initial encounter for closed fracture (principal); S32.012A Unstable burst fracture of first lumbar vertebra, initial encounter for closed fracture | CPT/HCPCS: 72100 ==

== ENCOUNTER 2021-12-27 20:05 | Inpatient (IN) | payer MEDICAID, OTHER ==
[2021-12-27 22:07] LABS: #Eosinphils 0.9 thou/uL (0.0-0.7); #Lymphocytes 2.1 thou/uL (1.20-3.40); #Monocytes 0.6 thou/uL (0.11-0.59); #Neutrophils 7.1 thou/uL (1.40-6.50); %Basophils 0.2 % (0.0-1.0); %Eosinophils 8.4 % (0.0-10.0); %Lymphocytes 19.3 % (21.0-51.0); %Monocytes 5.8 % (0.0-10.0); %Neutrophils 66.4 % (42.0-75.0); Hemoglobin 15.3 g/dL (12.0-16.0); Mean Corpuscular HGB CONC 34.5 g/dL (32.0-36.0); Mean Corpuscular Hemoglobin 27.3 pg (27.0-31.0); Mean Corpuscular Volume 79.2 fL (78.0-98.0); Mean Platelet Volume 7.3 fL (7.4-10.4); Platelet Count 257 thou/uL (130-400); RBC Distribution Width 14.1 % (11.5-14.5); Red Blood Cell (RBC) Count 5.61 mill/uL (4.20-5.40); White Blood Cell (WBC) Count 10.7 thou/uL (4.8-10.8)
[2021-12-27 22:21] LABS: Actual Bicarbonate (HCO3v) 22 mEq/L (22-28); Analyzer IN Cardio ER; Base Excess -1.5 mEq/L (-2.0 to +3.0); Calcium, Ionized (venous) 1.14 mmol/L (1.16-1.32); Chloride (VBG) 102 mmol/L (98-106); Hemoglobin (Hb) 15.7 g/dL (11.7-16.0); Potassium (VBG) 3.59 mmol/L (3.70-5.30); Sodium 137.8 mmol/L (133-146); pH (venous) 7.45 (7.32-7.43)
[2021-12-27 22:21] LABS: INR-International Normal Ratio 1.2; PTT 36.7 sec (22.9-36.1); Prothrombin Time 15.8 sec (12.0-14.7)
[2021-12-27 22:24] LABS: Acetaminophen Less than 10.0 mcg/mL (10.0-30.0); Alcohol Less than 10 mg/dL (Less than 10); Magnesium 2.1 mg/dL (1.6-2.6); Salicylate Less than 8.0 mg/dL (15.0-30.0)
[2021-12-27 22:25] LABS: ALT (SGPT) 18 U/L (8-55); AST (SGOT) 22 U/L (5-34); Alkaline Phosphatase 94 U/L (40-110); Anion Gap 17 mmol/L (10-20); BUN (Urea Nitrogen) 5 mg/dL (9.8-20.1); Calc. Creatinine Clearance 0 mL/min (70-130); Calcium 9.7 mg/dL (7.8-10.44); Carbon Dioxide 22 mmol/L (22-29); Chloride 102 mmol/L (98-107); Estimated GFR 91; Globulin 3.5 g/dL (2.4-3.5); Glucose 78 mg/dL (70-105); Potassium 3.9 mmol/L (3.5-5.1); Protein, Total 7.5 g/dL (6.0-8.3); Sodium 137 mmol/L (136-145)
[2021-12-28] MEDS ORDERED: Cefepime 2 GM VIAL ONE (00:12)
[2021-12-28] MEDS ORDERED: Vancomycin 1 GM/200 ML BAG ONE (00:43)
[2021-12-28 00:48] LABS: Amphetamine Not Detected (NotDetected); Barbiturates Screen Not Detected (NotDetected); Benzodiazepine Screen Not Detected (NotDetected); Cocaine Metabolite Screen Not Detected (NotDetected); Methadone Not Detected (NotDetected); Methamphetamine Not Detected (NotDetected); Opiate Screen Detected (NotDetected); Oxycodone Screen Not Detected (NotDetected); Phencyclidine (PCP) Not Detected (NotDetected); THC/Cannabinoid Screen Not Detected (NotDetected); Tricyclic Screen Not Detected (NotDetected)
[2021-12-28 00:49] LABS: Bacteria/HPF None Seen HPF (None Seen); Bilirubin Negative (Negative); Blood, Urine 3+ (Negative); Clarity Clear (Clear); Glucose, Urine (Dipstick) Normal (Negative); Ketone, Urine Trace mg/dL (Negative); Leukocyte 250 Leu/uL (Negative); Nitrite Negative (Negative); Protein, Urine (Dipstick) 10 mg/dL (Neg-Trace); RBC/HPF Greater than 50 HPF (0-3); Specific Gravity, Urine 1.019 (1.002-1.036); Squamous Epithelial 0-3 HPF (0-3); Urobilinogen Normal mg/dL (Less than 2)
[2021-12-28 01:15] LABS: Pregnancy Test - Urine (BHCG) Negative (Negative); Pregu Control Background? CLEAR/WHITE (CLR/WHITE); Pregu Control Bar Appear? YES (CONTROL BAR); Specific Gravity 1.019 (1.002-1.036)
[2021-12-28] MEDS ORDERED: Dextrose 5% in Water 1,000 ML IV PRN (02:39)
[2021-12-28] MEDS ORDERED: Dextrose 50% Abboject 50 ML SYRINGE SLOW IVP PRN (02:39)
[2021-12-28] MEDS ORDERED: HumaLOG 300 UNITS/3 ML VIAL SC PRN ×2 (02:39)
[2021-12-28 02:42] VITALS: BMI 40.6
[2021-12-28] MEDS: Lactated Ringer's 1,000 ML IV SCH ×4 (03:26→19:14)
[2021-12-28 04:49] LABS: #Eosinphils 0.8 thou/uL (0.0-0.7); #Monocytes 0.6 thou/uL (0.11-0.59); #Neutrophils 7.2 thou/uL (1.40-6.50); %Basophils 0.3 % (0.0-1.0); %Eosinophils 7.5 % (0.0-10.0); %Monocytes 5.6 % (0.0-10.0); %Neutrophils 67.6 % (42.0-75.0); Hemoglobin 14.1 g/dL (12.0-16.0); Mean Corpuscular HGB CONC 33.5 g/dL (32.0-36.0); Mean Corpuscular Hemoglobin 26.9 pg (27.0-31.0); Mean Corpuscular Volume 80.1 fL (78.0-98.0); Mean Platelet Volume 7.4 fL (7.4-10.4); Platelet Count 229 thou/uL (130-400); Red Blood Cell (RBC) Count 5.24 mill/uL (4.20-5.40); White Blood Cell (WBC) Count 10.7 thou/uL (4.8-10.8)
[2021-12-28 05:27] LABS: Anion Gap 16 mmol/L (10-20); BUN (Urea Nitrogen) 5 mg/dL (9.8-20.1); Calc. Creatinine Clearance 145 mL/min (70-130); Calcium 9.2 mg/dL (7.8-10.44); Carbon Dioxide 21 mmol/L (22-29); Chloride 105 mmol/L (98-107); Estimated GFR 92; Glucose 113 mg/dL (70-105); Potassium 3.4 mmol/L (3.5-5.1); Sodium 139 mmol/L (136-145)
[2021-12-28] MEDS ORDERED: Morphine 4 MG/ML VIAL SLOW IVP SCH ×2 (07:45→11:30)
[2021-12-28] MEDS ORDERED: busPIRone HCl 10 MG TAB PO SCH (09:00)
[2021-12-28] MEDS: hydrOXYzine Pamoate 25 mg Capsule PO SCH ×2 (09:56→19:58)
[2021-12-28] MEDS: lamoTRIgine 100 MG TAB PO SCH (09:56)
[2021-12-28] MEDS: Apixaban 5 MG TAB PO SCH ×2 (09:56→19:58)
[2021-12-28] MEDS: Nystatin Powder 15 GM BOT TOP SCH ×2 (10:00→19:58)
[2021-12-28] MEDS ORDERED: Iopamidol 370 76% 100 ML VIAL ONE (10:05)
[2021-12-28] MEDS ORDERED: Potassium Chloride 20 MEQ TAB PO SCH (11:15)
[2021-12-28] MEDS ORDERED: Furosemide 20 MG/2 ML VIAL SLOW IVP SCH (11:30)
[2021-12-28 11:31] LABS: Hemoglobin A1c 6.4 % (4.0-6.0)
[2021-12-28 11:43] LABS: Cardiac Risk 4.6 (Less than 4.5)
[2021-12-28 12:01] LABS: HIV (1/2) Antibody/Antigen Non-Reactive (NonReactive); HIV 1/2 INDEX 0.38 S/CO (<1.00)
[2021-12-28 12:07] LABS: Vitamin B12 260 pg/mL (211-911)
[2021-12-28 13:28] LABS: Syphilis Antibody Nonreactive (Nonreactive); Syphilis Antibody Index 0.14 S/CO (<1.00 Non-Reactive)
[2021-12-28] MEDS: Glimepiride 4 MG TAB PO SCH (16:05)
[2021-12-28] MEDS: Acetaminophen 325 MG TAB PO PRN (18:48)
[2021-12-28] MEDS ORDERED: traZODone HCl 50 MG TAB PO SCH (21:00)
[2021-12-28] MEDS ORDERED: Aripiprazole 10 MG TAB PO SCH (21:00)
[2021-12-29] MEDS ORDERED: hydrOXYzine 25 MG TAB PO SCH (00:15)
[2021-12-29] MEDS: Lactated Ringer's 1,000 ML IV SCH (00:44)
[2021-12-29 04:06] LABS: #Eosinphils 0.5 thou/uL (0.0-0.7); #Lymphocytes 1.9 thou/uL (1.20-3.40); #Monocytes 0.5 thou/uL (0.11-0.59); #Neutrophils 4.5 thou/uL (1.40-6.50); %Basophils 0.3 % (0.0-1.0); %Eosinophils 6.4 % (0.0-10.0); %Monocytes 6.3 % (0.0-10.0); Hemoglobin 13.4 g/dL (12.0-16.0); Mean Corpuscular HGB CONC 33.1 g/dL (32.0-36.0); Mean Corpuscular Hemoglobin 26.8 pg (27.0-31.0); Mean Corpuscular Volume 80.8 fL (78.0-98.0); Mean Platelet Volume 7.3 fL (7.4-10.4); Platelet Count 234 thou/uL (130-400); RBC Distribution Width 13.9 % (11.5-14.5); Red Blood Cell (RBC) Count 4.99 mill/uL (4.20-5.40); White Blood Cell (WBC) Count 7.3 thou/uL (4.8-10.8)
[2021-12-29 04:22] LABS: Anion Gap 15 mmol/L (10-20); BUN (Urea Nitrogen) 4 mg/dL (9.8-20.1); Calc. Creatinine Clearance 161 mL/min (70-130); Calcium 9.1 mg/dL (7.8-10.44); Carbon Dioxide 25 mmol/L (22-29); Chloride 102 mmol/L (98-107); Estimated GFR 105; Glucose 64 mg/dL (70-105); Potassium 3.4 mmol/L (3.5-5.1); Sodium 139 mmol/L (136-145)
[2021-12-29] MEDS ORDERED: Potassium Chloride 20 MEQ TAB PO SCH (06:30)
[2021-12-29] MEDS: hydrOXYzine Pamoate 25 mg Capsule PO SCH ×2 (09:37→22:11)
[2021-12-29] MEDS: Apixaban 5 MG TAB PO SCH ×2 (09:37→22:11)
[2021-12-29] MEDS: lamoTRIgine 100 MG TAB PO SCH (09:37)
[2021-12-29] MEDS: Nystatin Powder 15 GM BOT TOP SCH ×2 (09:38→22:11)
[2021-12-29] MEDS: Glimepiride 4 MG TAB PO SCH (16:36)
[2021-12-29] MEDS ORDERED: Atorvastatin Calcium 40 MG TAB PO SCH (21:00)
[2021-12-30] MEDS: Acetaminophen 325 MG TAB PO PRN ×2 (00:25→08:34)
[2021-12-30 04:53] LABS: #Eosinphils 0.7 thou/uL (0.0-0.7); #Lymphocytes 1.8 thou/uL (1.20-3.40); #Monocytes 0.5 thou/uL (0.11-0.59); #Neutrophils 4.4 thou/uL (1.40-6.50); %Basophils 0.4 % (0.0-1.0); %Eosinophils 9.6 % (0.0-10.0); %Neutrophils 58.9 % (42.0-75.0); Hemoglobin 13.7 g/dL (12.0-16.0); Mean Corpuscular HGB CONC 32.7 g/dL (32.0-36.0); Mean Corpuscular Hemoglobin 26.4 pg (27.0-31.0); Mean Corpuscular Volume 80.6 fL (78.0-98.0); Mean Platelet Volume 7.6 fL (7.4-10.4); Platelet Count 243 thou/uL (130-400); RBC Distribution Width 14.3 % (11.5-14.5); Red Blood Cell (RBC) Count 5.19 mill/uL (4.20-5.40); White Blood Cell (WBC) Count 7.4 thou/uL (4.8-10.8)
[2021-12-30 05:18] LABS: Anion Gap 14 mmol/L (10-20); BUN (Urea Nitrogen) Less than 4 mg/dL (9.8-20.1); Calc. Creatinine Clearance 173 mL/min (70-130); Calcium 8.9 mg/dL (7.8-10.44); Carbon Dioxide 23 mmol/L (22-29); Chloride 103 mmol/L (98-107); Estimated GFR 106; Potassium 3.4 mmol/L (3.5-5.1); Sodium 137 mmol/L (136-145)
[2021-12-30 05:24] LABS: Glucose 59 mg/dL (70-105)
[2021-12-30] MEDS: Apixaban 5 MG TAB PO SCH (08:33)
[2021-12-30] MEDS: lamoTRIgine 100 MG TAB PO SCH (08:33)
[2021-12-30] MEDS: Nystatin Powder 15 GM BOT TOP SCH (08:34)
[2021-12-30] MEDS ORDERED: Glimepiride 4 MG TAB PO SCH ×2 (09:30→17:00)
[2021-12-30] MEDS: hydrOXYzine Pamoate 25 mg Capsule PO SCH (10:18)
[2021-12-30 19:46] VITALS: BP 130/75; TEMP 99.1
[2021-12-31] MEDS ORDERED: Glimepiride 4 MG TAB PO SCH (08:00)
== END 2021-12-30 19:36 | disposition home or self-care (01) | DRG 189 ==
LOC: ERS 20:05 → 2NO 12-28 00:09 → OBSVTOIN 12-29 11:22
PROVIDERS: ADMIT Student in an Organized Health Care Education/Training Program; ATTEND Student in an Organized Health Care Education/Training Program
DX: J96.01 Acute respiratory failure with hypoxia (principal); R44.3 Hallucinations, unspecified; L10.0 Pemphigus vulgaris; R65.10 Systemic inflammatory response syndrome (SIRS) of non-infectious origin without acute organ dysfunction; R41.82 Altered mental status, unspecified; F31.9 Bipolar disorder, unspecified; M54.9 Dorsalgia, unspecified; G89.29 Other chronic pain; R25.1 Tremor, unspecified; T43.595A Adverse effect of other antipsychotics and neuroleptics, initial encounter; T43.215A Adverse effect of selective serotonin and norepinephrine reuptake inhibitors, initial encounter; E11.9 Type 2 diabetes mellitus without complications; R31.29 Other microscopic hematuria; R00.0 Tachycardia, unspecified; F41.9 Anxiety disorder, unspecified; L30.4 Erythema intertrigo; E87.6 Hypokalemia; M81.0 Age-related osteoporosis without current pathological fracture; F11.10 Opioid abuse, uncomplicated; E78.5 Hyperlipidemia, unspecified; F03.90 Unspecified dementia, unspecified severity, without behavioral disturbance, psychotic disturbance, mood disturbance, and anxiety; Z98.890 Other specified postprocedural states; S32.021D Stable burst fracture of second lumbar vertebra, subsequent encounter for fracture with routine healing; Z90.49 Acquired absence of other specified parts of digestive tract; Z90.710 Acquired absence of both cervix and uterus; Z79.84 Long term (current) use of oral hypoglycemic drugs; Z87.442 Personal history of urinary calculi; Z88.8 Allergy status to other drugs, medicaments and biological substances; Z79.899 Other long term (current) drug therapy; Z86.718 Personal history of other venous thrombosis and embolism; Z20.822 Contact with and (suspected) exposure to COVID-19; Z99.3 Dependence on wheelchair
CPT/HCPCS: 36415; 36416; 70450; 71045; 71260; 80048; 80053; 80061; 80306; 80307; 81003; 81015; 81025; 82607; 82805; 83036; 83605; 83735; 83880; 84145; 84443; 84484; 85025; 85379; 85610; 85730; 86780; 87040; 87086; 87389; 93005; 93306; 95816; 95819; 95957; 96375; G0378; J0692; J1940; J2270; J3370; J7120; Q0177; Q9967; U0003; U0005

== ENCOUNTER 2022-06-19 18:51 | Emergency (ER) | payer OTHER | END 2022-06-19 20:30 | disposition home or self-care (01) | LOC: ERS 18:51 | DX: L10.0 Pemphigus vulgaris (principal); L30.4 Erythema intertrigo; E11.9 Type 2 diabetes mellitus without complications | CPT/HCPCS: 99282 ==

== ENCOUNTER 2022-07-01 10:50 | Outpatient (CLI) | payer OTHER | END 2022-07-01 10:51 | disposition home or self-care (01) | LOC: BICMAMMO 10:50 | PROVIDERS: ATTEND Student in an Organized Health Care Education/Training Program | DX: Z13.820 Encounter for screening for osteoporosis (principal); M85.832 Other specified disorders of bone density and structure, left forearm; M85.831 Other specified disorders of bone density and structure, right forearm; Z79.52 Long term (current) use of systemic steroids | CPT/HCPCS: 77080 ==

== ENCOUNTER 2022-07-25 20:10 | Emergency (ER) | payer OTHER ==
[~2022-07-25 20:10] MED LIST: Iopamidol-370 76% 500 ML MDV (1 ML CHARGE) ONE
[2022-07-25] MEDS ORDERED: Ketorolac Tromethamine 30 MG/ML VIAL ONE ×2 (21:03→21:04)
[2022-07-25 21:50] LABS: Anion Gap 21 mmol/L (10-20); BUN (Urea Nitrogen) 10 mg/dL (9.8-20.1); Calc. Creatinine Clearance 0 mL/min (70-130); Calcium 9.7 mg/dL (7.8-10.44); Carbon Dioxide 17 mmol/L (22-29); Chloride 98 mmol/L (98-107); Estimated GFR 57; Glucose 308 mg/dL (70-105); Potassium 3.2 mmol/L (3.5-5.1); Sodium 133 mmol/L (136-145)
[2022-07-25] MEDS ORDERED: Potassium Chloride 20 MEQ TAB ONE (22:16)
[2022-07-25] MEDS ORDERED: HYDROcodone/Acetaminophen 5/325 mg Tablet ONE (22:21)
== END 2022-07-25 23:12 | disposition home or self-care (01) ==
LOC: ERS 20:10
DX: M54.50 Low back pain, unspecified (principal); E87.6 Hypokalemia; E11.65 Type 2 diabetes mellitus with hyperglycemia; Z86.718 Personal history of other venous thrombosis and embolism; Z79.84 Long term (current) use of oral hypoglycemic drugs; Z79.899 Other long term (current) drug therapy; Z85.828 Personal history of other malignant neoplasm of skin
CPT/HCPCS: 36415; 71275; 80048; 93005; 96361; 96374; J1885; Q9967